=== PATIENT | female | born 1965 | race Asian ===

== ENCOUNTER 2020-02-22 05:43 | Day surgery (SDC) | payer BC, OTHER ==
[2020-02-17 14:22] VITALS: BMI 25.7
[2020-02-22 10:23] VITALS: TEMP 97.9
[2020-02-22 11:15] VITALS: BP 120/57; PULSE 56
== END 2020-02-22 11:05 | disposition home or self-care (01) ==
LOC: JASU-SURG 05:43
PROVIDERS: ATTEND Internal Medicine Gastroenterology
PROC: 0DBP8ZX Excision of Rectum, Via Natural or Artificial Opening Endoscopic, Diagnostic (ICD-10-PCS; principal; 2020-02-22 10:00)
DX: Z12.11 Encounter for screening for malignant neoplasm of colon (principal); K62.1 Rectal polyp; K57.30 Diverticulosis of large intestine without perforation or abscess without bleeding
CPT/HCPCS: 88305-TC